=== PATIENT | female | born 2005 | race Caucasian/White ===

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

== ENCOUNTER → 2023-01-07 11:30 | Outpatient (BNVA) | payer OTHER, SELFPAY | PROVIDERS: PCP Family Medicine; Visit Provider Nurse Practitioner Women's Health | DX: N92.6 Irregular menstruation, unspecified (principal) | CPT/HCPCS: 76830 ==

== ENCOUNTER 2023-12-25 09:55 | Emergency (ER) | payer OTHER, SELFPAY ==
[2023-12-25 10:04] VITALS: BP 126/88; PULSE 95; RESP 18; TEMP 37.2; O2SAT 98; BMI 20.5
--- NOTE | 2023-12-25 10:38 | XR_ITS ---
WS: [id number] Portable AP upright chest, 12/25/2023 Clinical Data: cough/fevers Comparison: None. Findings: There our patchy opacities extending from both mariano into the lower lobes. The lung peripher ies are normal. No nodules, masses or effusions are seen. The heart is normal. The pulmonary vascular ity is not increased. No pneumothorax is seen. Impression: Patchy opacities extending from both mariano into the lower lobes which could represent minimal pneumoni a.
--- NOTE | 2023-12-25 12:58 | ED_ITS ---
HPI - General Adult General: Chief complaint: General Medical Stated complaint: Chest pain, SOB, fever Time Seen by Provider: 12/25/23 11:35 History of Present Illness: Patient presents to the ER with complaints of fever body aches cough congestion overall malaise. Patient says she had a coworker that was sick about 5 days ago and is when she started getting sick. She also brought at home to her boyfriend who has here with a similar complaints. Patient denies any regular prescription medication use or allergies. Review of Systems General: Reports: 10 or more systems reviewed and unremarkable except in HPI and below PFSH ED PFSH: Medical History No pertinent past medical history neghx: htn,dm,thyroid,dvt/pe PCP: Dr. Aquino [facility] Surgical History No pertinent past surgical history Family History Denies family history of Colon cancer Ovarian cancer Diabetes CAD (coronary artery disease) Clotting disorder Dementia Heart disease Hyperlipidemia Psychiatric illness Chronic kidney disease (CKD) Breast cancer Suicide Anesthesia complication Bleeding disorder Family history of premature coronary artery disease Lung disease Cancer Hypertension Uterine cancer Thyroid disease Stroke Social History Substance/Drug Use: never Do you think of yourself as: Straight/Heterosexual Female Reproductive History: Spontaneous abortions: No Physical Exam Const: COMMON NORMALS: no acute distress, average body habitus, patient oriented x3, no limitations, healthy appearing, alert and well nourished HENMT: COMMON NORMALS: normocephalic, atraumatic, hearing grossly normal bilaterally, external ears normal, Normal external nose present, moist oral mucous membranes and oropharynx normal HEAD & SCALP: normocephalic and atraumatic NOSE: Normal external nose present EXTERNAL EAR: Yes external ears normal Neck/C-Spine: COMMON NORMALS: full ROM, no lymphadenopathy, supple, no meningeal signs and no JVD Chest: COMMONS NORMALS: normal inspection of the chest and normal palpation of entire chest wall Resp: COMMON NORMALS: normal respiratory effort, No retractions, No use of accessory muscles and clear to auscultation bilaterally AUSCULTATION: clear to auscultation bilaterally Cardio: COMMON NORMALS: no JVD, regular rate, regular rhythm, S1 normal heart sound present, S2 normal heart sound present, No gallops present (Cardio), No clicks present (Cardio), No murmurs present (Cardio) and No rub (Cardio) RATE: regular rate RHYTHM: regular rhythm HEART SOUNDS: S1 normal heart sound present and S2 normal heart sound present GI: COMMON NORMALS: Normal to inspection, nondistended, normoactive bowel sounds present, Soft to palpation, non-tender, No hepatosplenomegaly present and no masses PALPATION: Yes Soft to palpation and Yes No hepatosplenomegaly pre sent Neuro: COMMON NORMALS: patient oriented x3 SENSORIUM/ORIENTATION: Yes alert MENINGEAL SIGNS: Yes no meningeal signs Course Vital Signs: Vital signs: Vital Signs Temperature 99.0 F 12/25/23 10:04 Pulse Rate 93 12/25/23 14:35 Respiratory Rate 18 12/25/23 10:04 Blood Pressure 136/81 12/25/23 14:35 Pulse Oximetry 97 12/25/23 14:35 Oxygen Delivery Me thod Room Air 12/25/23 10:04 [facility] - General Adult Medical Decision Making Awaiting for labs to come back patient decided that she was ready to leave. Chest x-ray showed patchy infiltrates consistent with possible minimal pneumonia respiratory panel is not back yet patient will be discharged and called with the results of the respiratory panel. Differential Diagnosis URI, bronchitis, viral syndrome, gastroenteritis Medical Records I reviewed the patient's medical records. Lab Data I reviewed the patient's lab results. Laboratory Results Adenovirus (PCR) Not detected (NOT DETECT) 12/25/23 12:13 C. pneumoniae DNA (PCR) Not detected (NOT DETECT) 12/25/23 12:13 Coronavirus 229E (PCR) Not detected (NOT DETECT) 12/25/23 12:13 Human Metapneumovir PCR Not detected (NOT DETECT) 12/25/23 12:13 Influenza A (H1) PCR Not detected (NOT DETECT) 12/25/23 12:13 Influ A (H1/09) PCR Not detected (NOT DETECT) 12/25/23 12:13 Influenza A (H3) PCR Not detected (NOT DETECT) 12/25/23 12:13 Influenza Type A (PCR) Not detected (NOT DETECT) 12/25/23 12:13 Influenza Type B (PCR) Not detected (NOT DETECT) 12/25/23 12:13 M. pneumoniae (PCR) Not detected (NOT DETECT) 12/25/23 12:13 Parainfluenza 1 (PCR) Not detected (NOT DETECT) 12/25/23 12:13 Parainfluenza 2 (PCR) Not detected (NOT DETECT) 12/25/23 12:13 Parainfluenza 3 (PCR) Detected (NOT DETECT) A 12/25/23 12:13 Parainfluenza 4 (PCR) Not detected (NOT DETECT) 12/25/23 12:13 RSV Type A (PCR) Not detected (NOT DETECT) 12/25/23 12:13 RSV Type B (PCR) Not detected (NOT DETECT) 12/25/23 12:13 Entero/Rhino (PCR) Not detected (NOT DETECT) 12/25/23 12:13 SARS-CoV-2 (PCR) Not detected (NOT DETECT) 12/25/23 12:13 All radiology interpretation(s) finalized by discharge Discharge Plan Discharge Patient Disposition: Home Clinical Impression: Viral syndrome Condition: Stable Prescriptions: No Action Stephany-[place]y Plus Cold-Flu 12.5-10-20-650 mg Powder In Packet 1 packet PO Q6H PRN (Reason: Cold Symptoms) Discharge Orders: Discharge ED (Routine); Ordered 12/25/23 Ordered By: Cristhian Stoddard Referrals: John Aquino DO [Primary Care Provider] - 1 week Patient Instructions: Viral Syndrome - Adult Activity Restrictions/Additional Instructions: Your chest x-ray showed you may have a little bit of patchy pneumonia this may be consistent with a viral pneumonia. Your respiratory panel is still pending. Once we get the results back we will call you with results. 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
[2023-12-25 14:24] LABS: Adenovirus Not Detected (NOT DETECT); Chlamydia Pneumoniae Not Detected (NOT DETECT); Coronavirus 229E,HKU1,NL63,OC4 Not Detected (NOT DETECT); Human Metapneumovirus Not Detected (NOT DETECT); Human Rhinovirus/Enterovirus Not Detected (NOT DETECT); Influenza A Not Detected (NOT DETECT); Influenza A H1 Not Detected (NOT DETECT); Influenza A H1-2009 Not Detected (NOT DETECT); Influenza A H3 Not Detected (NOT DETECT); Influenza B Not Detected (NOT DETECT); Mycoplasma Pneumoniae Not Detected (NOT DETECT); Parainfluenza Virus Type 1 Not Detected (NOT DETECT); Parainfluenza Virus Type 2 Not Detected (NOT DETECT); Parainfluenza Virus Type 3 Detected (NOT DETECT); Parainfluenza Virus Type 4 Not Detected (NOT DETECT); Respiratory Syncytial Virus A Not Detected (NOT DETECT); Respiratory Syncytial Virus B Not Detected (NOT DETECT); SARS-COV-2 Not Detected (NOT DETECT)
[2023-12-25 14:35] VITALS: BP 136/81; PULSE 93; O2SAT 97
== END 2023-12-25 14:36 | disposition home or self-care (01) ==
PROVIDERS: Physician Assistant; Emergency Provider Emergency Medicine; PCP Family Medicine
DX: B34.9 Viral infection, unspecified (principal); Z11.52 Encounter for screening for COVID-19
CPT/HCPCS: 71045; 87486; 87581; 87633; 99284

== ENCOUNTER 2024-06-12 20:58 | Emergency (ER) | payer OTHER, SELFPAY ==
--- NOTE | 2024-06-12 21:04 | XRR_ITS ---
PROCEDURE INFORMATION: Exam: XR Chest Exam date and time: 06/12/2024 9:50 PM Age: 18 years old Clinical indication: Cough and shortness of breath; Patient HX: Cough with SOB; Additional info: Cough, SOB TECHNIQUE: Imaging protocol: Radiologic exam of the chest. Views: 1 view. COMPARISON: CR XR chest 1V portable [id number] 12/25/2023 11:37 AM FINDINGS: Lungs: Unremarkable. No consolidation. Pleural spaces: Unremarkable. No pleural effusion. No pneumothorax. Heart/Mediastinum: Unremarkable. No cardiomegaly. Bones/joints: Unremarkable. XR/XR chest 1V portable [id number] IMPRESSION: No acute findings.
[2024-06-12 21:20] VITALS: BP 130/87; PULSE 69; RESP 16; O2SAT 98; BMI 17.2
--- NOTE | 2024-06-12 21:30 | W.ED.URI ---
HPI - URI/Sore Throat General: Chief Complaint: Upper Respiratory Infection Stated Complaint: sore throat pressure in lungs white stuff n throat Time Seen by Provider: 06/12/24 21:08 History of Present Illness: 18-year-old female comes in today for illness x 1 week. Patient reports white exudate to the tonsils. Patient reports sore throat and cough. Patient appears nontoxic. Patient appears in no severe pain. Related Data Home Medications Medication Instructions Recorded Confirmed doxylamin 12.5 mg-PSE 10 mg-DM 20 1 packet PO Q6H PRN Cold Symptoms 12/25/23 12/30/23 mg-acetaminophen 650 mg oral pwdr pk (Stephany-[place] Plus Cold-Flu) Previous Rx's Medication Instructions Recorded amoxicillin 875 mg-potassium 1 tab PO BID 7 days #14 tabs 12/30/23 clavulanate 125 mg tablet prednisone 20 mg tablet 20 mg PO DAILY #5 tabs 12/30/23 Allergies Allergy/AdvReac Type Severity Reaction Status Date / Time No Known Allergies Allergy Verified 12/30/23 15:20 Review of Systems General: Reports: 10 or more systems reviewed and unremarkable except in HPI and below ENMT: Reports: throat pain PFSH ED PFSH: Medical History No pertinent past medical history neghx: htn,dm,thyroid,dvt/pe PCP: Dr. Aquino Psychiatric care Surgical History No pertinent past surgical history Family History Denies family history of Colon cancer Ovarian cancer Diabetes CAD (coronary artery disease) Clotting disorder Dementia Heart disease Hyperlipidemia Psychiatric illness Chronic kidney disease (CKD) Breast cancer Suicide Anesthesia complication Bleeding disorder Family history of premature coronary artery disease Lung disease Cancer Hypertension Uterine cancer Thyroid disease Stroke Social History Substance/Drug Use: never Do you think of yourself as: Straight/Heterosexual Female Reproductive History: Spontaneous abortions: No Physical Exam Const: COMMON NORMALS: alert HENMT: COMMON NORMALS: normocephalic HEAD & SCALP: normocephalic THROAT: abnormal tonsil bilateral exudates and posterior oropharynx abnormal erythema Neck/C-Spine: COMMON NORMALS: full ROM Resp: COMMON NORMALS: normal respiratory effort and clear to auscultation bilaterally AUSCULTATION: clear to auscultation bilaterally Cardio: COMMON NORMALS: regular rate RATE: regular rate GI: COMMON NORMALS: non-tender : COMMON NORMALS: Yes no CVA tenderness BLADDER/KIDNEY EXAM: Yes no CVA tenderness Back/Pelvis: COMMON NORMALS: no CVA tenderness Extremity: COMMON NORMALS: full ROM Neuro: SENSORIUM/ORIENTATION: Yes alert Skin: COMMON NORMALS: turgor normal GENERAL SKIN EXAM: turgor normal Course Vital Signs: Vital signs: Vital Signs Pulse Rate 69 06/12/24 21:20 Respiratory Rate 16 06/12/24 21:20 Blood Pressure 130/87 06/12/24 21:20 Pulse Oximetry 98 06/12/24 21:20 Oxygen Delivery Me thod Room Air 06/12/24 21:20 MDM - URI/Sore Throat Medical Decision Making 18-year-old female comes in today for complaints of sore throat, cough, and malaise x 4 to 5 days. On exam patient appears nontoxic. Patient appears no acute distress. Posterior pharynx is slightly erythematous with some mild tonsillar enlargement and exudate. Vital signs normal. Differential diagnosis viral syndrome, strep pharyngitis, upper respiratory infection. COVID test and strep test were both negative. Chest x-ray was normal. Reviewed exam with patient with recommendations for treatment for viral illness. Encourage plenty of fluids and acetaminophen ibuprofen for discomfort. Patient reports understanding agreed to plan. Lab Data Radiology Impressions Chest X-Ray 06/12/24 21:04 IMPRESSION: No acute findings. Laboratory Results SARS-CoV-2 Ag (Rapid) Negative (Negative) 06/12/24 22:00 Group A Strep Rapid Negative (Negative) 06/12/24 22:00 All radiology interpretation(s) finalized by discharge Discharge Plan Discharge Patient Disposition: Home Clinical Impression: Upper respiratory infection Qualifiers: URI type: acute pharyngitis Pharyngitis/tonsillitis etiology: unspecified etiology Qualified Code(s): J02.9 - Acute pharyngitis, unspecified Condition: Stable Prescriptions: No Action amoxicillin-pot clavulanate 875-125 mg tablet 1 tab PO BID 7 Days Qty: 14 0RF prednisone 20 mg tablet 20 mg PO DAILY Qty: 5 0RF Stephany-[place] Plus Cold-Flu 12.5-10-20-650 mg Powder In Packet 1 packet PO Q6H PRN (Reason: Cold Symptoms) Discharge Orders: Discharge ED (Routine); Ordered 06/12/24 Ordered By: Salvador Hanson Referrals: John Aquino, [Primary Care Provider] - Discharge Diet: Usual diet Discharge Activity: Increase activity as tolerated Patient Instructions: Opioid Safety Activity Restrictions/Additional Instructions: Drink plenty of water and fluids. Use acetaminophen and ibuprofen for pain and discomfort. Follow-up with primary care in 3 to 5 days for recheck. Return to ED for worsening symptoms such as severe chest pain or severe shortness of breath. Coding Level of Care Code ED Embedded Software Architect for Carly Martinez
[2024-06-12 22:29] LABS: Rapid Strep A Test Negative (Negative); SARS Covid-2 Antigen Negative (Negative)
[2024-06-12 22:45] VITALS: BP 125/72; PULSE 72; O2SAT 93
== END 2024-06-12 22:47 | disposition home or self-care (01) ==
PROVIDERS: Emergency Provider Nurse Practitioner Family; PCP Family Medicine
DX: J02.9 Acute pharyngitis, unspecified (principal); Z11.52 Encounter for screening for COVID-19
CPT/HCPCS: 71045; 87081; 87426; 87880; 99284

== ENCOUNTER → 2024-06-15 13:23 | Outpatient (BNVA) | payer OTHER, SELFPAY | PROVIDERS: PCP Family Medicine; Visit Provider Nurse Practitioner | DX: R06.2 Wheezing (principal) | CPT/HCPCS: 71046 ==

== ENCOUNTER → 2025-03-24 14:59 | Outpatient (BNVA) | payer OTHER, SELFPAY | PROVIDERS: PCP Family Medicine; Visit Provider Registered Nurse Neonatal Intensive Care | DX: N39.0 Urinary tract infection, site not specified (principal); R31.9 Hematuria, unspecified | CPT/HCPCS: 81000 ==

== ENCOUNTER → 2025-06-06 07:34 | Outpatient (BNVA) | payer OTHER, SELFPAY | PROVIDERS: PCP Family Medicine | DX: R39.9 Unspecified symptoms and signs involving the genitourinary system (principal) | CPT/HCPCS: 81000 ==

== ENCOUNTER → 2025-08-28 08:59 | Outpatient (BNVA) | payer OTHER, SELFPAY | PROVIDERS: PCP Family Medicine; Visit Provider Nurse Practitioner Family | DX: R39.9 Unspecified symptoms and signs involving the genitourinary system (principal) | CPT/HCPCS: 81000 ==